=== PATIENT | male | born 1975 | race Caucasian/White ===

== ENCOUNTER 2020-03-11 05:39 | Emergency (ER) | payer OTHER ==
[~2020-03-11] VITALS: Ht 180.3 cm; Wt 90.9 kg
[2020-03-11 05:40] VITALS: BP 94/59
--- NOTE | 2020-03-11 05:53 | NUR ---
PER PATIENT DID HIT HEAD WHEN HE FELL. MD INFORMED PER MD CT SCAN NOT INDICATED AT THIS TIME DUE TO NO LOC OR THINNERS.
[2020-03-11] MEDS ORDERED: acetaminophen 325mg tablet PO ONE (07:55)
== END 2020-03-11 08:30 | disposition home or self-care (01) ==
LOC: ER 05:40
DX: S50.02XA Contusion of left elbow, initial encounter (principal); Z88.0 Allergy status to penicillin; W18.39XA Other fall on same level, initial encounter; Y93.89 Activity, other specified; Y92.89 Other specified places as the place of occurrence of the external cause; Y99.8 Other external cause status
CPT/HCPCS: 73060; 99284